=== PATIENT | male | born 2000 | race Caucasian/White ===

== ENCOUNTER 2022-03-20 00:10 | Emergency (ER) | payer OTHER, SELFPAY ==
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
[2022-03-20 00:48] VITALS: BP 109/64; PULSE 69; RESP 16; TEMP 36.4; O2SAT 98; BMI 36.1
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
[2022-03-20 01:30] LABS: COVID-19 Test Negative (Negative)
[2022-03-20 03:13] VITALS: BP 108/60; PULSE 71; RESP 16; TEMP 36.4; O2SAT 96
== END 2022-03-20 03:14 | disposition home or self-care (01) ==
PROVIDERS: Emergency Provider Emergency Medicine
DX: S16.1XXA Strain of muscle, fascia and tendon at neck level, initial encounter (principal); Z20.822 Contact with and (suspected) exposure to COVID-19; W16.022A Fall into swimming pool striking bottom causing other injury, initial encounter; Y93.11 Activity, swimming; Y92.34 Swimming pool (public) as the place of occurrence of the external cause; Y99.9 Unspecified external cause status
CPT/HCPCS: 70450; 72125; 87635; 99282; 99284